=== PATIENT | male | born 1990 | race Caucasian/White ===

== ENCOUNTER 2020-05-30 02:05 | Emergency (ER) | payer SELFPAY ==
--- NOTE | ~2020-05-30 | XR_ITS ---
EXAMINATION: XR chest 1V portable DATE: 05/30/2020 02:24 INDICATION: Left chest pain. TECHNIQUE: A single frontal view of the chest was obtained. COMPARISON: None. FINDINGS: The chest demonstrates clear lungs without pneumonia, pleural effusion, or pneumothorax. Th e heart size is normal. IMPRESSION: 1. No acute cardiopulmonary disease. Reviewed, dictated and finalized at location A.
--- NOTE | 2020-05-30 02:16 | ECG_ITS ---
Measurements Intervals [place] Rate: 125 P: 73 UT: 108 QRS: 79 QRSD: 84 T: 20 QT: 278 QTc: 401 Interpretive Statements SINUS TACHYCARDIA WITH SHORT UT INTERVAL MINIMAL Q WAVES- INF/LAT LEADS BORDERLINE ST-T WAVE ABNORMALITY- INFERIOR LEADS ABNORMAL ECG Electronically Signed On 05-30-2020 7:15:07 CDT by Aung Camarena D.O.
[2020-05-30] MEDS: LORazepam INJ (*CRX) 2 MG/ML VIAL 1 MG IV PUSH (02:26)
[2020-05-30] MEDS: SODIUM CHLORIDE 0.9% IV 1,000 ML 999 ML IV CONT ×2 (02:26→03:02)
--- NOTE | 2020-05-30 02:27 | ED.GENADULT ---
HPI - General Adult General Chief complaint: Chest Pain Stated complaint: increased HR Time Seen by Provider: 05/30/20 02:09 History of Present Illness HPI narrative: Patient is a 29-year-old gentleman who presents the emergency department with chief complaint of palpitations. Patient states that he did some drinking yesterday and then today was at work and started feeling as though his heart is racing. Patient states his heart was beating fast and dad states he felt a little bit of tightness in his chest. Patient denies diaphoresis denies shortness of breath. The patient reports has not used any sympathomimetic agents Related Data Allergies Allergy/AdvReac Type Severity Reaction Status Date / Time amoxicillin Allergy Unknown Swelling Unverified 03/08/17 04:59 azithromycin Allergy Unknown Swelling Unverified 03/08/17 04:59 clavulanic acid Allergy Unknown Swelling Unverified 03/08/17 04:59 Course Vital Signs Vital signs: Vital Signs Pulse Rate 128 H 05/30/20 02:29 Respiratory Rate 18 05/30/20 02:29 Blood Pressure 122/78 05/30/20 02:29 Pulse Oximetry 100 05/30/20 02:29 Pulse Rate 103 H 05/30/20 03:46 Respiratory Rate 16 05/30/20 03:46 Blood Pressure 122/78 05/30/20 02:29 Pulse Oximetry 100 05/30/20 03:46 Medical Decision Making Vital Signs Vital Signs: Vital Signs Pulse Rate 128 H 05/30/20 02:29 Respiratory Rate 18 05/30/20 02:29 Blood Pressure 122/78 05/30/20 02:29 Pulse Oximetry 100 05/30/20 02:29 Pulse Rate 103 H 05/30/20 03:46 Respiratory Rate 16 05/30/20 03:46 Blood Pressure 122/78 05/30/20 02:29 Pulse Oximetry 100 05/30/20 03:46 Lab Data Result diagrams: 05/30/20 02:28 05/30/20 02:28 Labs: Lab Results 05/30/20 05/30/20 05/30/20 Range/Units 02:28 02:28 02:28 WBC 18.2 H (4.5-10.0) K/mm3 RBC 4.78 (4.6-6.20) M/mm3 Hgb 16.5 (14.0-18.0) g/dL Hct 46.3 (42.0-52.0) % MCV 96.9 (80-100) fl MCH 34.5 H (26-34) pg MCHC 35.6 (32-36) g/dl RDW 12.0 (11.5-14.5) % Plt Count 270 (150-375) k/mm3 MPV 9.5 (7.4-10.4) fl Immature Gran % (Auto) 0.4 (0-0.5) % Neut % (Auto) 78.2 H (45.5-73.1) % Lymph % (Auto) 11.9 L (18.3-44.2) % [place] % (Auto) 9.1 H (2.6-8.5) % Eos % (Auto) 0.1 (0-4.4) % Baso % (Auto) 0.3 (0.2-1.2) % Lymph # (Auto) 2.16 (0.9-3.2) K/mm3 [place] # (Auto) 1.7 H (0.1-0.6) K/mm3 Eos # (Auto) 0.0 (0-0.3) K/mm3 Baso # (Auto) 0.1 (0.0-0.1) K/mm3 Abs Immat Gran (auto) 0.07 H (0.00-0.031) K/mm3 Absolute Neuts (auto) 14.3 H (1.3-6.7) K/mm3 Absolute Nucleated RBC 0.0 (0.0-0.012) K/mm3 Nucleated RBC % 0.0 (0.0-0.2) % D-Dimer < 0.22 (<0.48) ug/mL Sodium 139 (137-145) mmol/L Potassium 3.4 (3.4-5.0) mmol/L Chloride 102 (98-107) mmol/L Carbon Dioxide 27 (22-30) mmol/L Anion Gap 10 (8-16) mmol/L BUN 9 (9-20) mg/dL Creatinine 0.90 (0.7-1.3) mg/dL Estim Creat Clear Calc 98 ml/min Estimated GFR > 60 (59 - ) Glucose 105 (75-110) mg/dL Calcium 9.6 (8.4-10.2) mg/dL Total Bilirubin 0.4 (0.2-1.3) mg/dL AST 32 (17-59) U/L ALT 19 (4-50) U/L Alkaline Phosphatase 139 H (38-126) U/L Troponin I (0.000-0.034) ng/mL Total Protein 8.0 (6.3-8.2) g/dL Albumin 4.6 (3.5-5.1) g/dL Urine Color (Yellow) Urine Appearance (Clear) Urine pH (5.0-9.0) Ur Specific [place] (1.001-1.035) Urine Protein (Negative) mg/dL Urine Glucose (UA) (Negative) mg/dL Urine Ketones (Negative) mg/dL Ur Blood (Man) (Negative) Urine Nitrate (Negative) Urine Bilirubin (Negative) Urine Urobilinogen (<2.0) mg/dL Leukocyte Esterase Rfl (Negative) ESME/UL Urine RBC (0-2) /hpf Urine WBC /hpf Urine Mucus /lpf Urine Opiates Screen (Negative) Urine Methadone Screen (Negative) Ur Barbiturates Sc
[2020-05-30 02:29] VITALS: BP 122/78; PULSE 128; RESP 18; O2SAT 100
[2020-05-30 02:38] LABS: Basophils Absolute Auto 0.1 K/mm3 (0.0-0.1); Basophils Percent Auto 0.3 % (0.2-1.2); Eosinophils Percent Auto 0.1 % (0-4.4); Hematocrit 46.3 % (42.0-52.0); Hemoglobin 16.5 g/dL (14.0-18.0); Immature Granulocyte Absolute 0.07 K/mm3 (0.00-0.031); Immature Granulocyte Percent A 0.4 % (0-0.5); Lymphocytes Absolute Auto 2.16 K/mm3 (0.9-3.2); Lymphocytes Percent Auto 11.9 % (18.3-44.2); Mean Corpuscular HGB Conc 35.6 g/dl (32-36); Mean Corpuscular Hemoglobin 34.5 pg (26-34); Mean Corpuscular Volume 96.9 fl (80-100); Mean Platelet Volume 9.5 fl (7.4-10.4); Monocytes Absolute Auto 1.7 K/mm3 (0.1-0.6); Monocytes Percent Auto 9.1 % (2.6-8.5); Neutrophils Absolute Auto 14.3 K/mm3 (1.3-6.7); Neutrophils Percent Auto 78.2 % (45.5-73.1); Platelet Count Result 270 k/mm3 (150-375); Red Blood Count 4.78 M/mm3 (4.6-6.20); White Blood Count 18.2 K/mm3 (4.5-10.0)
[2020-05-30 02:45] LABS: Alanine Aminotransferase 19 U/L (4-50); Albumin Level 4.6 g/dL (3.5-5.1); Alkaline Phosphatase 139 U/L (38-126); Anion Gap 10 mmol/L (8-16); Aspartate Amino Transferase 32 U/L (17-59); Bilirubin,Total 0.4 mg/dL (0.2-1.3); Blood Urea Nitrogen 9 mg/dL (9-20); Calcium 9.6 mg/dL (8.4-10.2); Carbon Dioxide 27 mmol/L (22-30); Chloride 102 mmol/L (98-107); Estimated CRCL calculation 98 ml/min; Estimated Glomerular Filt Rate > 60; Glucose 105 mg/dL (75-110); Potassium 3.4 mmol/L (3.4-5.0); Sodium 139 mmol/L (137-145)
[2020-05-30 02:57] LABS: D Dimer < 0.22 ug/mL (<0.48); Troponin I < 0.012 ng/mL (0.000-0.034)
[2020-05-30 03:46] VITALS: PULSE 103; RESP 16; O2SAT 100
[2020-05-30 05:13] LABS: Add Urine Microscopic? NO; Appearance Urine Clear (Clear); Bilirubin Urine Negative (Negative); Blood Urine Negative (Negative); Color Urine Straw (Yellow); Glucose Urine UA Negative (Negative); Ketones Urine Negative (Negative); Leukocyte Esterase Ur Negative LEU/UL (Negative); Mucus Urine Few /lpf; Nitrate Urine Negative (Negative); Protein Urine Negative (Negative); RBC Urine 0-2 /hpf (0-2); Specific Grav Ur 1.006 (1.001-1.035); Urobilinogen Urine Negative mg/dL (<2.0); WBC Urine 0-3 /hpf
[2020-05-30 05:23] LABS: Barbiturate Screen Urine Negative (Negative); Benzodiazepines Screen Urine Negative (Negative)
[2020-05-30 05:25] LABS: Cannabinoid Screen Urine Negative (Negative); Cocaine Screen Urine Negative (Negative); Methadone Screen Urine Negative (Negative); Opiate Screen Urine Negative (Negative)
[2020-05-30 05:36] VITALS: BP 128/82; PULSE 92; RESP 16; TEMP 36.8; O2SAT 100
[2020-05-30 05:46] LABS: Phencyclidine Screen Urine Negative (Negative)
[2020-05-30 05:50] LABS: Amphetamine Screen Urine Positive (Negative)
== END 2020-05-30 05:37 | disposition home or self-care (01) ==
PROVIDERS: Emergency Provider Emergency Medicine
DX: R00.2 Palpitations (principal); E86.0 Dehydration; R00.0 Tachycardia, unspecified; R94.31 Abnormal electrocardiogram [ECG] [EKG]
CPT/HCPCS: 36415; 71045; 80053; 80307; 81003; 84484; 85025; 85380; 93005; 96361; 96374; 99284; J2060; J7030

== ENCOUNTER 2020-08-18 10:53 | Emergency (ER) | payer SELFPAY ==
--- NOTE | ~2020-08-18 | XR_ITS ---
EXAMINATION: XR foot LT min 3V, XR ankle LT min 3V EXAM DATE: 08/18/2020 11:39 INDICATION: Initial encounter following injury, with pain of the left foot, ankle. TECHNIQUE: Left foot dorsoplantar, lateral and oblique projections obtained and reviewed. Left ankle frontal, lateral and oblique projections obtained and reviewed. There is no prior study for compari son. FINDINGS: Left metatarsal bones unremarkable. The left ankle mortise appears intact. There are no acute fractures or dislocations identified. There is no subcutaneous gas. The soft tissue is unrem arkable. There are no radiopaque foreign bodies. IMPRESSION: Left foot, ankle exam without acute osseous findings. Reviewed, dictated and finalized at location A. IMPRESSION: Left foot, ankle exam without acute osseous findings.
[2020-08-18 10:58] VITALS: BP 123/68; PULSE 109; RESP 20; TEMP 36.6; O2SAT 95
[2020-08-18 11:16] VITALS: BP 123/68; PULSE 109; RESP 16; TEMP 36.6; O2SAT 95
--- NOTE | 2020-08-18 11:28 | ED.LOWEXIN ---
HPI - Extremity Injury (Lower) General Chief Complaint: Extremity Injury, Lower Stated Complaint: ankle injury Time Seen by Provider: 08/18/20 11:17 Source: patient and RN notes reviewed Mode of arrival: ambulatory Limitations: no limitations History of Present Illness HPI Narrative: This is a 29 year old male who presents for evaluation of left ankle pain s/p fall. He states he jumped off a 5 foot dwain . He states on his landing his left ankle buckled. This injury occurred last night . He is unable to bear weight. He has not taken anything for pain. This pain he started having severe throbbing pain and it made him vomit. He states his toes feel like needles. He denies any other in juries. He denies hitting his head or LOC. Related Data Allergies Allergy/AdvReac Type Severity Reaction Status Date / Time amoxicillin Allergy Unknown Swelling Verified 08/18/20 11:21 azithromycin Allergy Unknown Swelling Verified 08/18/20 11:21 clavulanic acid Allergy Unknown Swelling Verified 08/18/20 11:21 Review of Systems Review of Systems: All systems reviewed & are unremarkable except as noted in HPI and below PMFSH Past Medical History Medical History (Updated 08/18/20 @ 12:52 by Sisi Walsh MD) Patient denies medical problems Surgical History Surgical History (Updated 08/18/20 @ 11:28 by Sisi Walsh MD) Hx of tonsillectomy Social History Social History (Updated 08/18/20 @ 11:29 by Sisi Walsh MD) Smoking packs per day: 0.5 Smoking cigarettes per day: 10.0 Smoking status: Current every day smoker Alcohol intake: current Alcohol use details: social drinker Substance use: current Substance use type: marijuana Exam Const: General: no acute distress and alert Orientation/consciousness: patient oriented x3 Eyes: EOM: EOMs intact bilaterally Resp: Effort & Inspection: normal respiratory effort Skin: General skin exam: normal color Rashes: no rashes Neuro: General: patient oriented x3 and moves all extremities Extrem: Other: left foot- no bruising, no swelling; strong pedal pulses presents. able to wiggle toes , TTP dorsum foot Psych: Mental Status: mental status grossly normal Affect: normal affect Course Reevaluation(s) Reevaluation #1: I discussed with patient no fracture seen on xray. His does not have significant swelling or bruising to foot to suggest fracture. I discussed with patient plan to discharge and he can follow up with PCP in 1 week if pain does not improve. Date: 08/18/20 Time: 12:48 Vital Signs Vital signs: Vital Signs Temperature 97.9 F 08/18/20 10:58 Pulse Rate 109 H 08/18/20 10:58 Respiratory Rate 20 08/18/20 10:58 Blood Pressure 123/68 08/18/20 10:58 Pulse Oximetry 95 08/18/20 10:58 Temperature 97.9 F 08/18/20 11:16 Pulse Rate 99 08/18/20 13:59 Respiratory Rate 18 08/18/20 13:59 Blood Pressure 110/76 08/18/20 13:59 Pulse Oximetry 100 08/18/20 13:59 MDM - Extremity Injury (Lower) Imaging Data Radiologist's impression: ITS Impressions Ankle X-Ray 08/18/20 11:42 IMPRESSION: Left foot, ankle exam without acute osseous findings. Foot X-Ray 08/18/20 11:42 IMPRESSION: Left foot, ankle exam without acute osseous findings. Discharge Plan Discharge Clinical Impression: Sprain of ankle, left, Contusion of left foot, initial encounter Patient Disposition: Home, Self-Care Condition: Stable Instructions: Ankle Sprain (ED), Crutch Instructions (ED), Foot Contusion (ED) Additional Instructions: Today you were evaluated for a left foot and ankle injury. No fractures were found on your xray . Continue to keep elevated when possible, apply ice for 20 minute intervals to reduce pain. Follow up with your primary care physician within 1 week if your pain has not improved or you can come back to ER. Prescriptions: New ibuprofen 600 mg tablet 600 mg PO Q6H PRN
[2020-08-18 11:32] VITALS: BP 138/90; PULSE 98; RESP 11; O2SAT 97
[2020-08-18] MEDS: oxyCODONE/ACETAMINOPHEN (*CRX) 5-325 MG TABLET 1 TABLET PO (11:35)
[2020-08-18] MEDS: ONDANSETRON HCL ODT 4 MG TABLET PO (11:35)
[2020-08-18 11:46] VITALS: BP 128/61; PULSE 96; RESP 31; O2SAT 99
[2020-08-18 12:31] VITALS: BP 137/77; PULSE 102; RESP 25; O2SAT 96
[2020-08-18 13:59] VITALS: BP 110/76; PULSE 99; RESP 18; O2SAT 100
== END 2020-08-18 13:35 | disposition home or self-care (01) ==
PROVIDERS: Emergency Provider General Practice
DX: S93.402A Sprain of unspecified ligament of left ankle, initial encounter (principal); S90.32XA Contusion of left foot, initial encounter; F17.210 Nicotine dependence, cigarettes, uncomplicated; W15.XXXA Fall from cliff, initial encounter
CPT/HCPCS: 73610; 73630; 99283; A9270

== ENCOUNTER 2020-12-19 11:05 | Emergency (ER) | payer SELFPAY ==
[2020-12-19 11:16] VITALS: BP 126/76; PULSE 87; RESP 16; TEMP 36.6; O2SAT 100
--- NOTE | 2020-12-19 12:35 | ED.WOUNDLAC ---
HPI - Wound/Laceration General Chief Complaint: Wound/Laceration <Lesa Olivas PA-C - Last Filed: 12/19/20 14:24> Stated Complaint: lacerations <SUGYE Du Last Filed: 12/19/20 14:24> Time Seen by Provider: 12/19/20 11:22 <SUGEY Du Last Filed: 12/19/20 14:24> Source: patient <SUGEY Du Last Filed: 12/19/20 14:24> Mode of arrival: ambulatory <SUGEY Du Last Filed: 12/19/20 14:24> Limitations: no limitations <SUGEY Du Last Filed: 12/19/20 14:24> History of Present Illness HPI narrative: This is a 30-year-old male that presents to the emergency department with multiple lacerations. Reports he had been drinking alcohol. Him and his friend were playing with a [email or web address] sword. He sustained several superficial lacerations to the abdomen and arms. Also reports 2 deeper lacerations to the left hand and the right forearm. Reports that wounds have continued to bleed which prompted him to be seen. He is up-to-date on tetanus. Denies decreased range of motion or numbness. <Lesa Olivas PA-C - Last Filed: 12/19/20 14:24> Related Data Allergies/Adverse Reactions: Allergies Allergy/AdvReac Type Severity Reaction Status Date / Time amoxicillin Allergy Unknown Swelling Verified 12/19/20 11:26 azithromycin Allergy Unknown Swelling Verified 12/19/20 11:26 clavulanic acid Allergy Unknown Swelling Verified 12/19/20 11:26 <SUGEY Du Last Filed: 12/19/20 14:24> Review of Systems Review of Systems: CONSTITUTIONAL: Denies fever SKIN: Reports laceration <SUGEY Du Last Filed: 12/19/20 14:24> All systems reviewed & are unremarkable except as noted in HPI and below <SUGEY Du Last Filed: 12/19/20 14:24> PMFSH Past Medical History Medical History: Medical History (Updated 12/19/20 @ 14:23 by Lesa Olivas PA-C) Patient denies medical problems <Lesa Olivas PA-C - Last Filed: 12/19/20 14:24> Surgical History Surgical History: Surgical History (Updated 08/18/20 @ 11:28 by Sisi Walsh MD) Hx of tonsillectomy <Lesa Olivas PA-C - Last Filed: 12/19/20 14:24> Social History Social History: Social History (Updated 08/18/20 @ 11:29 by Sisi Walsh MD) Smoking packs per day: 0.5 Smoking cigarettes per day: 10.0 Smoking status: Current every day smoker Alcohol intake: current Alcohol use details: social drinker Substance use: current Substance use type: marijuana <Lesa Olivas PA-C - Last Filed: 12/19/20 14:24> Exam Narrative: GENERAL: Well-appearing, well-nourished, and in no acute distress. HEAD: Normocephalic, atraumatic. EYES: EOMI. EXTREMITIES: Normal range of motion. No edema. Left hand dorsal surface with 6cm linear laceration into subcutaneous tissue. Right forearm with 8cm linear laceration into subcutaneous tissue. Several scattered superficial abrasions to the arms SKIN: Warm, dry, no rash. NEURO: No focal deficits. Alert and oriented x3. PSYCH: Normal mood and affect <Lesa Olivas PA-C - Last Filed: 12/19/20 14:24> Course Vital Signs Vital signs: Vital Signs Temperature 98 F 12/19/20 11:16 Pulse Rate 87 12/19/20 11:16 Respiratory Rate 16 12/19/20 11:16 Blood Pressure 126/76 12/19/20 11:16 Pulse Oximetry 100 12/19/20 11:16 Temperature 98 F 12/19/20 11:16 Pulse Rate 87 12/19/20 11:16 Respiratory Rate 16 12/19/20 11:16 Blood Pressure 126/76 12/19/20 11:16 Pulse Oximetry 100 12/19/20 11:16 <Lesa Olivas PA-C - Last Filed: 12/19/20 14:24> Procedures Laceration Laceration 1: Date: 12/19/20 <Lesa Olivas PA-C - Last Filed: 12/19/20 14:24> Time: 14:19 <Lesa Olivas PA-C - Last Filed: 12/19/20 14:24> Site: upper extremity <Lesa Olivas PA-C - Last Filed: 12/19/20 14:24> Side (If appli
--- NOTE | 2020-12-19 19:20 | PC.NURSE ---
Pts wallet found in room. Pt called and stated he will come up and get it. Wallet placed in safe in ER
== END 2020-12-19 14:31 | disposition home or self-care (01) ==
PROVIDERS: Emergency Provider General Practice
DX: S61.412A Laceration without foreign body of left hand, initial encounter (principal); S51.811A Laceration without foreign body of right forearm, initial encounter; W26.1XXA Contact with sword or dagger, initial encounter
CPT/HCPCS: 12005; 99283